=== PATIENT | male | born 1960 | race Caucasian/White ===

== ENCOUNTER → 2016-08-19 | Outpatient (CLI) | payer OTHER ==
[~2016-08-19] MED LIST: ASPIRIN81 M2 PO; AUGMENTIN875 M1 PO; AZOR 10-40 MG1 EACH PO; AZOR 10/40 MG T1 TAB PO; BUPROPION HCL150 M1 PO; BUPROPION XL150 MG PO; FELDENE10 MG PO; GLUCOPHAGE500 MG; HYDROCODON-ACE1 EAC5 PO; IRON PILL PO; IRON TABLETS1 TAB PO; K-DUR20 ME1 PO; LANSOPRAZOLE30 M3 PO; LIDODERM1 EACH TD; LIDODERM30 EA TOP; LORTAB 10-3251 EACH PO; MELOXICAM7.5 MG PO; METFORMIN HCL500 M1 PO; METFORMIN PO; MOBIC PO; MORPHINE SULFAT15 M3 PO; MORPHINE SULFAT15 MG PO; MS CONTIN15 M1 PO; MULTI-VITAMIN1 EAC1 PO; NORCO 7.5-3251 EACH PO; PHENERGAN12.5 M1 PR; PRAVASTATIN SOD40 MG PO; PRAVASTATIN SOD80 MG PO; PRILOSEC20 M1 PO; REGLAN10 MG PO; TYLENOL325 M1 PO; VITAMIN D-32000 UNI1 PO; VITAMIN D250000 UNIT PO; VITAMIN D50000 UNIT PO; WELLBUTRIN XL150 M2 PO; ZOFRAN ODT4 MG PO
--- NOTE | ~2016-08-19 | EKG ---
PATIENT: JORDYN SANTOS UNIT #: [id number] Ventricular Rate: 88 BPM Atrial Rate: 88 BPM P-R Interval: 152 ms QRS Duration: 88 ms Q-T Interval: 374 ms QTC Calculation(Bezet): 452 ms P Orange: 64 degrees Calculated R Orange: 57 degrees Calculated T Orange: 71 degrees Diagnosis Line: Normal sinus rhythm Diagnosis Line: Normal ECG Diagnosis Line: When compared with ECG of 02-JAN-2016 12:00, Diagnosis Line: T wave inversion no longer evident in Diagnosis Line: Anterolateral leads Diagnosis Line: Confirmed by ALONDRA PAGAN MD ([id number]) on 08/21/2016 Diagnosis Line: 9:47:36 AM INTERPRETING MD: LATASHA MAYO
[2016-08-19 14:49] LABS: HEMATOCRIT 40.2 % (38.0-50.0); HEMOGLOBIN 13.5 gm/dL (13.0-16.0); MEAN CELL VOLUME 82.7 FL (83-96); MEAN CORPUSCULAR HEMOGLOBIN 27.8 PG (28-34); MEAN CORPUSCULAR HGB CONC 33.6 g/dL (30-36); MEAN PLATELET VOLUME 10.1 FL (6.5-11.5); RED BLOOD COUNT 4.86 X10e (3.90-5.60); RED CELL DISTRIBUTION WIDTH 13.1 % (11.0-15.5); WHITE BLOOD COUNT 6.5 X10e3 (4.0-10.5)
[2016-08-19 14:54] LABS: BUN/CREATININE RATIO 16.66; CALCIUM SERUM 9.2 mg/dL (8.4-10.2); CREATININE SERUM 1.2 mg/dL (0.6-1.4); GLOM FILT RATE Estimated 66.3 mL/min (>60); POTASSIUM 3.1 mmol/L (3.5-5.1)
== END | disposition home or self-care (01) ==
LOC: CAMB 13:14
PROVIDERS: Surgery
DX: Z01.818 Encounter for other preprocedural examination (principal); K43.9 Ventral hernia without obstruction or gangrene
CPT/HCPCS: 36415; 80048; 85027; 93005

== ENCOUNTER → 2016-08-20 | Day surgery (SDC) | payer OTHER ==
--- NOTE | ~2016-08-20 | OR ---
Unit #: [id number] #: [id number] Patient: JORDYN SANTOS [id number] [facility]. [place], [place] [address] [id number] MR#: [id number] NAME: JORDYN SANTOS ROOM: Date of Procedure: 08/20/2016 Admission Date: 08/20/2016 Surgeon: Joel Gavin III, M.D. : 1960 Attending Physician: Joel Gavin III, M.D. Primary Care Physician: Su Iniguez A.P.R.N. OPERATIVE REPORT PREOPERATIVE DIAGNOSIS Incisional hernia x2. POSTOPERATIVE DIAGNOSIS Incisional hernia x3. PROCEDURE PERFORMED Laparoscopic ventral hernia repair with 6 x 8 Ventralight mesh. AIRPLANE PILOT CROP DUSTING Wally Littlejohn M.D. SPECIMENS None. COMPLICATIONS None apparent. ESTIMATED BLOOD LOSS Minimal. INDICATIONS FOR PROCEDURE This is a 56-year-old gentleman who has undergone a prior laparoscopic paraesophageal hernia repair by me and subsequently, had severe gastroparesis, requiring a gastric pacemaker. He has some epigastric hernia that is the largest with a clear fascial defect. He also has another separate hernia site in the left upper quadrant. He is here today for laparoscopic repair. I have discussed the potential issues with the gastric pacemaker wires. DESCRIPTION OF PROCEDURE After consent was obtained, the patient was brought to the operating room and placed in the supine position. General anesthetic was administered. His abdomen was prepped and draped in standard surgical fashion. I made a 5-mm incision in the right upper quadrant and used an Optiview to enter the peritoneal cavity without any difficulty. CO2 pneumoperitoneum was then established. Next, a second 5-mm port was placed in the right lower quadrant. A 10-mm port was placed in the left upper quadrant, and a 5-mm port was placed in the left lower quadrant. Likely, there were no signs of incarceration or any adhesions within the hernias. There were actually three separate hernia defects, the one as noted in the epigastric region, which was largest in 2 smaller hernias in the left upper quadrant. I Unit #: [id number] #: [id number] Patient: JORDYN SANTOS noted the gastric pacemaker wires, which were tunneled through the prominent portion of the falciform ligament and then exited on the left side towards the antral area. I did not disturb these throughout the case. I did however have to take down part of the falciform ligament to accommodate the mesh. Once I did this with the Bovie, I estimated that a 6 x 8-inch Ventralight mesh would widely cover the defect with at least a 5-cm margin. I placed 4 corner sutures along the mesh. It was then marked on the abdominal wall, moistened, and rolled up and passed through the 10-mm port site. I then used an Endo passer to collect the 4 tails of the mesh and oriented the mesh such that the rough side was towards the fascia and the smooth side was towards the viscera. I tacked the fascia circumferentially with SorbaFix Tacker with both an outer and inner row of tacks. I had excellent hemostasis, and all needle, sponge, and instrument counts were correct x2. I removed all the trocars and released the pneumoperitoneum. The incisions were all injected with 0.25% plain Marcaine. It should also be noted that I used a neoClose device to reapproximate the 10-mm port site given his propensity for forming hernias. Next, the incisions were reapproximated with interrupted 4-0 Vicryl subcuticular suture. Steri-Strips were then applied. The patient tolerated the procedure without any problems and returned to the recovery room in stable condition. Dictated by... Joel Gavin III, M.D. VCL/lee TD: 08/21/2016 07:48 JOB #: [id number] OPERATIVE REPORT Page 1 of 1 X Joel Gavin III, MD PROCEDURE OPERATIVE NOTE
== END | disposition home or self-care (01) ==
LOC: CSUR 05:26
DX: K43.2 Incisional hernia without obstruction or gangrene (principal); I10 Essential (primary) hypertension; E11.9 Type 2 diabetes mellitus without complications; K21.9 Gastro-esophageal reflux disease without esophagitis; E78.00 Pure hypercholesterolemia, unspecified; M19.90 Unspecified osteoarthritis, unspecified site; D64.9 Anemia, unspecified; Z87.442 Personal history of urinary calculi; Z87.891 Personal history of nicotine dependence; Z79.4 Long term (current) use of insulin; Z79.899 Other long term (current) drug therapy; Z79.1 Long term (current) use of non-steroidal anti-inflammatories (NSAID); Z79.891 Long term (current) use of opiate analgesic; Z98.890 Other specified postprocedural states
CPT/HCPCS: 82947; 84132; C1787; J0330; J0690; J2250; J2405; J3010

== ENCOUNTER 2016-09-19 16:50 | Emergency (ER) | payer OTHER ==
[2016-09-19 17:57] LABS: BASOPHIL% 0.6 % (0-2.5); EOSINOPHIL% 0.5 % (0.0-7.0); HEMATOCRIT 43.4 % (38.0-50.0); HEMOGLOBIN 14.3 gm/dL (13.0-16.0); LYMPHOCYTE# 0.5 X10e3 (1.0-3.5); LYMPHOCYTE% 5.6 % (17.0-45.0); MEAN CORPUSCULAR HEMOGLOBIN 27.8 PG (28-34); MEAN PLATELET VOLUME 9.8 FL (6.5-11.5); MONOCYTE# 0.2 X10e3 (0-1.0); MONOCYTE% 2.5 % (3.0-12.0); NEUTROPHIL# 7.5 X10e3 (1.5-7.1); NEUTROPHIL% 90.8 % (40-75); PLATELET COUNT 288 X10e3 (140-420); RED BLOOD COUNT 5.17 X10e (3.90-5.60); RED CELL DISTRIBUTION WIDTH 14.6 % (11.0-15.5); WHITE BLOOD COUNT 8.3 X10e3 (4.0-10.5)
[2016-09-19 17:58] LABS: DIFF IND NO
[2016-09-19 18:23] LABS: ALBUMIN SERUM 4.6 g/dL (3.5-5.0); BILIRUBIN, DIRECT 0.1 mg/dL (0.0-0.2); BILIRUBIN,TOTAL 1.1 mg/dL (0.2-2.0); CALCIUM SERUM 9.9 mg/dL (8.4-10.2); CREATININE SERUM 0.8 mg/dL (0.6-1.4); GLOM FILT RATE Estimated 98.5 mL/min (>60); POTASSIUM 3.8 mmol/L (3.5-5.1); PROTEIN TOTAL SERUM 8.5 g/dL (6.0-8.3)
[2016-09-19 20:05] LABS: URINE SOURCE CLEAN CATCH
[2016-09-19 20:10] LABS: URINE APPEARANCE CLEAR; URINE BILIRUBIN NEG (NEG); URINE BLOOD NEG (NEG); URINE COLOR YELLOW; URINE GLUCOSE NEG (NEG); URINE KETONE TRACE (NEG); URINE LEUKOCYTE ESTERASE NEG (NEG); URINE NITRATE NEG (NEG); URINE PH 8.5 (5-8); URINE PROTEIN 2+ (NEG); URINE SPECIFIC GRAVITY 1.015 (1.003-1.035); URINE UROBILINOGEN 0.2 MG/DL (NEG)
[2016-09-19 20:14] LABS: URBCS1 AUWI 0-2 /[HPF] (0-2); URINE BACTERIA AUWI NEG (NEGATIVE); URINE SQUAMOUS EPITHELIAL CELL NONE SEEN /[HPF]; UWBCS1 AUWI 0-2 (0-5)
[2016-09-19 20:15] LABS: CULTURE INDICATED? NO
== END 2016-09-19 22:09 | disposition home or self-care (01) ==
LOC: CED 16:50
DX: R11.10 Vomiting, unspecified (principal); I10 Essential (primary) hypertension
CPT/HCPCS: 80048; 80076; 81003; 83690; 85025; 96361; 96372; 96374; 96375; 99284; J2405; J2550; J2765